=== PATIENT | male | born 1950 | race Caucasian/White ===

== ENCOUNTER 2021-09-01 07:45 | Day surgery (SDC) | payer MEDICARE, OTHER ==
[2021-09-01] VITALS (23 sets, daily range): BP systolic 101–152; BP diastolic 55–92
[~2021-09-01] VITALS: Ht 185.4 cm; Wt 93.7 kg
[2021-09-01] MEDS ORDERED: METO-384 PO (08:25)
[2021-09-01] MEDS ORDERED: FERR325T7 PO (08:25)
[2021-09-01] MEDS ORDERED: FLUO-103 PO (08:25)
[2021-09-01] MEDS ORDERED: ATOR10TA70 PO (08:25)
[2021-09-01] MEDS ORDERED: AMLO10TA13 PO (08:25)
[2021-09-01] MEDS ORDERED: METF-438 PO (08:25)
[2021-09-01] MEDS ORDERED: PANT40TA54 PO (08:25)
[2021-09-01] MEDS ORDERED: POTA-207 PO (08:25)
[2021-09-01] MEDS ORDERED: LORA-269 PO (08:25)
[2021-09-01] MEDS ORDERED: FURO40TA4 PO (08:25)
[2021-09-01] MEDS ORDERED: ASPI-1071 PO (08:26)
[2021-09-01] MEDS ORDERED: MULT-1085 PO (08:28)
[2021-09-01] MEDS ORDERED: ASCO-139 PO (08:28)
[2021-09-01] MEDS ORDERED: CIRCUMIN (08:42)
[2021-09-01] MEDS ORDERED: MAGN400C PO (08:42)
[2021-09-01] MEDS ORDERED: UBID200C18 PO (08:42)
[2021-09-01] MEDS ORDERED: Vitamin B12 (08:42)
[2021-09-01] MEDS ORDERED: CALCIUM PYRUVATE PO (08:42)
[2021-09-01] MEDS ORDERED: ZINC50TA60 PO (08:42)
[2021-09-01] MEDS ORDERED: CHOL500050 PO (08:42)
[2021-09-01] MEDS ORDERED: Milk Thistle (08:42)
[2021-09-01 08:52] LABS: ALBUMIN 4.4 G/DL (3.4-5.0); ANION GAP 12 (8-16); BLOOD UREA NITROGEN 19 MG/DL (7-18); BUN/CREATININE RATIO 16.2 (5.4-32.0); CALCIUM 9.9 MG/DL (8.5-10.1); CHLORIDE 102 MMOL/L (99-107); CREATININE 1.17 MG/DL (0.60-1.10); GLUCOSE 123 MG/DL (70-104); MAGNESIUM 1.5 MG/DL (1.5-2.4); SODIUM 140 MMOL/L (135-145); eGFR 61 ML/MIN
[2021-09-01 08:53] LABS: POTASSIUM 4.3 MMOL/L (3.5-5.1)
[2021-09-01 08:54] LABS: HEMATOCRIT 40.1 % (42.0-52.0); MEAN CORPUSCULAR HGB CONC 33.3 g/dL (33.0-36.5); WHITE BLOOD COUNT 5.7 X10'3 (4.5-11.0)
[2021-09-01 08:56] LABS: HEMOGLOBIN 13.3 g/dl (14.0-17.9); MEAN CORPUSCULAR HEMOGLOBIN 29.1 PG (27.0-31.0); MEAN CORPUSCULAR VOLUME 87.3 FL (78-98); PLATELET COUNT 71 X10'3 (140-440); RED BLOOD COUNT 4.59 X10'6 (4.70-6.10); RED CELL DISTRIBUTION WIDTH 15.9 % (11.5-14.5)
[2021-09-01] MEDS ORDERED: glycopyrrolate 0.2mg/ml inj IV ONE (08:58)
[2021-09-01] MEDS ORDERED: fentaNYL/PF 50MCG/1 ML 2ML syringe IV ONE (09:00)
[2021-09-01] MEDS ORDERED: MIDAZolam 1mg/ml 10ml vial IV ONE (09:00)
[2021-09-01] MEDS ORDERED: normal saline 1000ml 1,000 ML IV SCH (09:00)
[2021-09-01 09:13] LABS: ANISOCYTOSIS 1+; LARGE PLATELETS FEW; PLATELET ESTIMATE DECREASED; POIKILOCYTOSIS FEW; TOTAL CELLS COUNTED 100
[2021-09-01] MEDS ORDERED: amiodarone/D5 360MG/200ML BAG 200 ML IV ONE (11:25)
== END 2021-09-01 15:15 | disposition home or self-care (01) ==
LOC: SSTAY O 07:45
PROVIDERS: ATTEND Internal Medicine Cardiovascular Disease
DX: I48.0 Paroxysmal atrial fibrillation (principal); I25.10 Atherosclerotic heart disease of native coronary artery without angina pectoris; I25.5 Ischemic cardiomyopathy; I08.1 Rheumatic disorders of both mitral and tricuspid valves; I25.2 Old myocardial infarction; I10 Essential (primary) hypertension; E78.5 Hyperlipidemia, unspecified; K70.30 Alcoholic cirrhosis of liver without ascites; E11.9 Type 2 diabetes mellitus without complications; D69.6 Thrombocytopenia, unspecified; D64.9 Anemia, unspecified; Z95.1 Presence of aortocoronary bypass graft; Z79.899 Other long term (current) drug therapy
CPT/HCPCS: 36415; 80048; 82948; 83735; 85025; 85610; 92960; 93005; 93312; 93325; 94760; 94799; J0282; J2250; J3010; J3490; J7030; 85007

== ENCOUNTER 2023-06-25 07:52 | Inpatient (IN) | payer MEDICARE, OTHER ==
[2023-06-18 14:42] LABS: BASOPHILS % (AUTO) 0.5 % (0-1); EOSINOPHILS # (AUTO) 0.1 X10'3 (0-0.9); EOSINOPHILS % (AUTO) 2.4 % (0-6); LYMPHOCYTES % (AUTO) 15.9 % (21-51); MEAN CORPUSCULAR HEMOGLOBIN 31.8 PG (27.0-31.0); MEAN CORPUSCULAR VOLUME 96.3 FL (78-98); MEAN PLATELET VOLUME 10.6 FL (7.4-10.4); MONOCYTES # (AUTO) 0.4 X10'3 (0-0.9); MONOCYTES % (AUTO) 6.2 % (2-12); NEUTROPHILS # (AUTO) 4.6 X10'3 (1.8-7.7); PRE OP HEMATOCRIT 43.8 % (42.0-52.0); PRE OP HEMOGLOBIN 14.5 g/dL (14.0-17.9); PRE OP WHITE BLOOD COUNT 6.1 10'3 (4.8-10.8); RED BLOOD COUNT 4.55 X10'6 (4.70-6.10); RED CELL DISTRIBUTION WIDTH 13.6 % (11.5-14.5)
[2023-06-18 14:47] LABS: BILIRUBIN,URINE NEGATIVE (Neg); CLARITY,URINE CLEAR (Clear); COLOR,URINE YELLOW (Yellow); GLUCOSE, URINE NEGATIVE (Neg); KETONES,URINE NEGATIVE (Neg); LEUKOCYTE ESTERASE ,URINE NEGATIVE (Neg); NITRITES, URINE NEGATIVE (Neg); OCCULT BLOOD,URINE NEGATIVE (Neg); PH,URINE 7.5 (4.8-8.0); PROTEIN,URINE NEGATIVE (Neg); UROBILINOGEN,URINE 0.2 E.U/dL (0.2-1.0)
[2023-06-18 14:54] LABS: UA COLLECTION TYPE CLN CATCH MIDSTREAM
[2023-06-18 14:59] LABS: PRE OP INR 1.2 INR; PRE OP PROTIME 12.9 SECONDS (9.0-12.0)
[2023-06-18 15:00] LABS: ALBUMIN 4.1 G/DL (3.4-5.0); ALBUMIN/GLOBULIN RATIO 1.3 (1.1-1.5); ALKALINE PHOSPHATASE 112 IU/L (46-116); BLOOD UREA NITROGEN 19 MG/DL (7-18); BUN/CREATININE RATIO 16.5 (10.0-20.0); CHLORIDE 104 MMOL/L (99-107); CREATININE 1.15 MG/DL (0.60-1.10); PRE OP ALT 26 U/L (30-65); PRE OP ANION GAP 12 (8-16); PRE OP AST 26 U/L (10-37); PRE OP BILIRUB, TOTAL 0.8 MG/DL (0.0-1.0); PRE OP GLUCOSE 97 MG/DL (70-104); PRE OP POTASSIUM 4.3 MMOL/L (3.4-5.1); PRE OP SODIUM 141 MMOL/L (135-145); TOTAL CARBON DIOXIDE 24.8 MMOL/L (24-32); TOTAL PROTEIN 7.2 G/DL (6.4-8.2); eGFR 62 ML/MIN
[2023-06-18 15:11] LABS: PRE OP PLATELET COUNT 61 X10'3 (140-440)
[~2023-06-25] VITALS: Ht 185.4 cm; Wt 91.6 kg
[2023-06-25] VITALS (30 sets, daily range): BP systolic 110–144; BP diastolic 56–73; PULSE 47–60; RESP 9–19; TEMP 97.6–98; O2SAT 91–100
[2023-06-25] MEDS: cefazolin 2gm/D5W 100mL 100 ML IV ONE (05:30)
[~2023-06-25 07:52] MED LIST: ACETYL CARNITINE PO; ALPH600C3 PO; AMI200T PO; AMLO-888 PO; ATOR20TA66 PO; CALCIUM PYRUVATE PO; CHOL500050 PO; CYAN-34 PO; FURO40TA4 PO; IRON PO; METF-438 PO; POTA-207 PO; RESV100C PO; UBID200C18 PO
[2023-06-25] MEDS: ringers solution, lacted 1,000 ML IV SCH ×2 (08:41→09:20)
[2023-06-25] MEDS: famotidine 20mg tablet PO ONE (08:42)
[2023-06-25] MEDS ORDERED: morphine 2 MG/ML inj. syringe IV PRN (09:20)
[2023-06-25] MEDS ORDERED: proCHLORperazine 10 MG/2 ml inj IV PRN (09:20)
[2023-06-25] MEDS ORDERED: morphine 4 MG/ML inj SYRINge IV PRN (09:20)
[2023-06-25] MEDS ORDERED: meperidine/PF 25mg/ml syringe IV PRN (09:20)
[2023-06-25] MEDS ORDERED: hydrALAZINE 20mg/ml inj. IV PRN (09:20)
[2023-06-25] MEDS ORDERED: HYDROmorphone/PF 0.2 MG/ML SYRINGE IV PRN ×2 (09:20)
[2023-06-25] MEDS ORDERED: labetalol 20mg/4ml (5mg/ml) syringe IV PRN (09:20)
[2023-06-25] MEDS ORDERED: ondansetron/PF 4mg/2ml inj IV PRN ×2 (09:20→10:00)
[2023-06-25] MEDS ORDERED: methylene blue (5mg/ml) 50mg/10ml ampul IV ONE (09:55)
[2023-06-25] MEDS ORDERED: gelatin sponge, absorbable (Gelfoam 100) sponge TP ONE (09:56)
[2023-06-25] MEDS ORDERED: Thrombin (Bovine) 5,000 unit vial TP ONE (09:56)
[2023-06-25] MEDS ORDERED: naloxone 0.4 mg/ml inj IV PRN (10:00)
[2023-06-25] MEDS ORDERED: magnesium hydroxide 30ml (MOM) UD suspension PO PRN (10:00)
[2023-06-25] MEDS ORDERED: bisacodyl 10mg suppository rectal RC PRN (10:00)
[2023-06-25] MEDS ORDERED: acetaminophen 325mg tablet PO PRN (10:00)
[2023-06-25] MEDS ORDERED: diphenhydrAMINE 25mg capsule PO PRN (10:00)
[2023-06-25] MEDS ORDERED: midazolam 1 mg/ML 2ml injection ONE (10:11)
[2023-06-25] MEDS ORDERED: sevoflurane 250ml liquid IH ONE (10:15)
[2023-06-25] MEDS ORDERED: HYDROcodone/acetaminophen 5mg/325mg tablet PO PRN (10:15)
[2023-06-25] MEDS: tranexamic acid inj. 1,000 MG in normal saline IV soln 100ML IV ONE (10:30)
[2023-06-25] MEDS ORDERED: dexamethasone sod phosphate 4mg/ml inj. ONE (10:50)
[2023-06-25] MEDS ORDERED: rocuronium 10mg/ml inj IV ONE (10:50)
[2023-06-25] MEDS ORDERED: ROPIVAcaine 0.5% (5mg/ml) 30ml vial ONE (10:50)
[2023-06-25] MEDS ORDERED: LIDOcaine 1%/PF 5ML 10 MG/ML VIAL ONE ×2 (10:50)
[2023-06-25] MEDS ORDERED: neostigmine methylsulfate 1 MG/ML 10ml vial ONE (10:50)
[2023-06-25] MEDS ORDERED: propofol inj 20 ML IV ONE (10:50)
[2023-06-25] MEDS ORDERED: fentaNYL /PF 50mcg/ml 5ml ampule ONE (10:50)
[2023-06-25] MEDS ORDERED: ondansetron/PF 4mg/2ml inj ONE (10:52)
[2023-06-25] MEDS: vancomycin 1,000mg inj ONE (12:21)
[2023-06-25] MEDS ORDERED: glycopyrrolate 0.2mg/ml inj ONE (12:44)
[2023-06-25] MEDS: acetaminophen 1,000mg/100ml IV 100 ML IV ONE (14:05)
[2023-06-25] MEDS: HYDROcodone/acetaminophen 5mg/325mg tablet PO PRN (17:22)
[2023-06-25] MEDS ORDERED: glucagon, human recombinant 1mg kit SUBCUT PRN (19:15)
[2023-06-25] MEDS ORDERED: DEXTROSE 15 GM of carb/4 tabs (each vial/BOTTLE has 4 tablets) PO PRN ×2 (19:15)
[2023-06-25] MEDS ORDERED: dextrose 50%-water 50ml dispensing syringe IV PRN ×2 (19:15)
[2023-06-25] MEDS: cefazolin 2gm/D5W 100mL 100 ML IV SCH (19:25)
[2023-06-25] MEDS: potassium cl 20mEq in 1/2 NS 1,000 ML IV SCH (19:26)
[2023-06-25] MEDS: insulin glargine (Lantus) pen - multi-dose SQ SCH (21:00)
[2023-06-25] MEDS: insulin Lispro (HumaLOG) vial - multi-dose SQ SCH (22:29)
[2023-06-26 02:00] VITALS: BP 116/61; PULSE 56; RESP 15; TEMP 98.3; O2SAT 95
[2023-06-26 06:00] VITALS: BP 123/61; PULSE 50; RESP 16; TEMP 97.5; O2SAT 95
[2023-06-26 08:00] VITALS: RESP 16; O2SAT 95
[2023-06-26] MEDS ORDERED: furosemide 40mg tablet PO SCH (08:00)
[2023-06-26] MEDS ORDERED: RESVERATROL PO SCH (08:00)
[2023-06-26 08:08] LABS: EOSINOPHILS % (AUTO) 0 % (0-6); MONOCYTES # (AUTO) 0.6 X10'3 (0-0.9); WHITE BLOOD COUNT 9.8 X10'3 (4.5-11.0)
[2023-06-26 08:12] LABS: BASOPHILS % (AUTO) 0 % (0-1); HEMATOCRIT 38.6 % (42.0-52.0); LYMPHOCYTES # (AUTO) 0.6 X10'3 (1.1-4.8); LYMPHOCYTES % (AUTO) 6.4 % (21-51); MEAN CORPUSCULAR HEMOGLOBIN 32.2 PG (27.0-31.0); MEAN CORPUSCULAR HGB CONC 33.8 g/dL (33.0-36.5); MEAN CORPUSCULAR VOLUME 95.2 FL (78-98); MEAN PLATELET VOLUME 10.5 FL (7.4-10.4); MONOCYTES % (AUTO) 5.8 % (2-12); NEUTROPHILS # (AUTO) 8.6 X10'3 (1.8-7.7); NEUTROPHILS % (AUTO) 87.8 % (42-75); PLATELET COUNT 77 X10'3 (140-440); RED BLOOD COUNT 4.05 X10'6 (4.70-6.10); RED CELL DISTRIBUTION WIDTH 13.5 % (11.5-14.5)
[2023-06-26] MEDS: atorvastatin 20mg tablet PO SCH (08:38)
[2023-06-26] MEDS: metFORMIN 500mg tablet PO SCH (08:38)
[2023-06-26] MEDS: amiodarone 200mg tablet PO SCH (08:38)
[2023-06-26] MEDS: furosemide 20MG tablet PO SCH (08:38)
[2023-06-26] MEDS: cyanocobalamin 500mcg tablet PO SCH (08:38)
[2023-06-26] MEDS: cholecalciferol (vitamin D3) 1,000 unit (25mcg) tablet PO SCH (08:38)
[2023-06-26] MEDS: amLODIPine 5mg tablet PO SCH (08:40)
[2023-06-26 08:42] LABS: ANION GAP 9 (8-16); CHLORIDE 103 MMOL/L (99-107); POTASSIUM 4.6 MMOL/L (3.5-5.1); SODIUM 135 MMOL/L (135-145); TOTAL CARBON DIOXIDE 23.3 MMOL/L (24-32)
[2023-06-26 10:00] VITALS: BP 121/65; PULSE 60; RESP 18; TEMP 98.5; O2SAT 98
[2023-06-26] MEDS ORDERED: ASPI-1 PO (10:54)
[2023-06-26] MEDS: cefazolin 2gm/D5W 100mL 100 ML IV SCH (11:25)
[2023-06-26 11:39] VITALS: RESP 16
[2023-06-26] MEDS ORDERED: HYDR-3965 PO (12:53)
== END 2023-06-26 13:40 | disposition home or self-care (01) | DRG 483 ==
LOC: PAS 07:52 → ORTHO 4S 17:03 → PAS 06-26 09:44
PROVIDERS: ADMIT Family Medicine; ATTEND Family Medicine
PROC: 0LS30ZZ Reposition Right Upper Arm Tendon, Open Approach (ICD-10-PCS; 2023-06-25)
PROC: 30233R1 Transfusion of Nonautologous Platelets into Peripheral Vein, Percutaneous Approach (ICD-10-PCS; 2023-06-25)
PROC: 0RRJ00Z Replacement of Right Shoulder Joint with Reverse Ball and Socket Synthetic Substitute, Open Approach (ICD-10-PCS; principal; 2023-06-25 10:15)
DX: M19.011 Primary osteoarthritis, right shoulder (principal); M75.111 Incomplete rotator cuff tear or rupture of right shoulder, not specified as traumatic; I25.10 Atherosclerotic heart disease of native coronary artery without angina pectoris; I10 Essential (primary) hypertension; Z96.651 Presence of right artificial knee joint; D69.6 Thrombocytopenia, unspecified; I48.0 Paroxysmal atrial fibrillation; E11.9 Type 2 diabetes mellitus without complications; Z95.1 Presence of aortocoronary bypass graft; Z79.84 Long term (current) use of oral hypoglycemic drugs; Z79.899 Other long term (current) drug therapy
CPT/HCPCS: 36415; 36430; 71046; 73030; 76000; 80051; 80053; 81003; 82948; 85025; 85610; 85730; 86885; 86900; 86901; 87081; 97110; 97161; 97530; A4565; A4618; A6449; A6455; A7000; C1776; G0378; J0131; J0690; J1100; J1815; J2250; J2405; J2704; J2710; J2795; J3010; J3370; J3480; J3490; J7120; P9035; Q9968

== ENCOUNTER → 2023-07-24 | Outpatient (CLI) | payer MEDICARE, OTHER ==
[~2023-07-24] MED LIST changes: +ASPI-1 PO; +HYDR-3965 PO
[2023-07-24 08:17] LABS: TOTAL HEMOGLOBIN 14.3 G/dl (14.0-17.9)
== END | disposition home or self-care (01) ==
LOC: RT 07:46
PROVIDERS: ATTEND Internal Medicine
DX: R06.02 Shortness of breath (principal)
CPT/HCPCS: 85018; 94010; 94727; 94729

== ENCOUNTER 2024-11-05 05:58 | Day surgery (SDC) | payer MEDICARE, OTHER ==
[2024-10-27 11:32] LABS: MEAN PLATELET VOLUME 11.0 FL (7.4-10.4); PRE OP HEMATOCRIT 40.5 % (42.0-52.0); PRE OP HEMOGLOBIN 14.0 g/dL (14.0-17.9); PRE OP WHITE BLOOD COUNT 5.0 10'3 (4.8-10.8); RED CELL DISTRIBUTION WIDTH 14.5 % (11.5-14.5)
--- NOTE | 2024-10-27 11:37 | ELECTROCARDIOGRAPH REPORT ---
[facility] Test Date: 2024-10-27 Test Time: 11:32:55 Pat Name: FLORES ROWE Department: [facility]-PRE-OP Patient ID: [id number] Room: Gender: M Pattern Stamper: : 1950 Requested By: FLORES STRATTON Order Number: [id number] Reading MD: Dr. REHAN Moura Measurements Intervals [place] Rate: 86 P: 0 SD: 164 QRS: 211 QRSD: 141 T: 25 QT: 435 QTc: 521 Interpretive Statements Ventricular-paced rhythm No further analysis attempted due to paced rhythm Electronically Signed On 10-27-2024 17:12:[address] REHAN Moura Please click the below link to view image of tracing.
[2024-10-27 11:44] LABS: CREATININE 0.93 MG/DL (0.60-1.10); PRE OP ALT 29 U/L (30-65); PRE OP ANION GAP 6 (8-16); PRE OP AST 27 U/L (10-37); PRE OP BILIRUB, TOTAL 1.1 MG/DL (0.0-1.0); PRE OP GLUCOSE 91 MG/DL (70-104); PRE OP POTASSIUM 3.9 MMOL/L (3.4-5.1); PRE OP SODIUM 138 MMOL/L (135-145); TOTAL CARBON DIOXIDE 27.4 MMOL/L (24-32); eGFR 79 ML/MIN
[2024-10-27 12:06] LABS: PRE OP PLATELET COUNT 54 X10'3 (140-440)
[2024-10-27 12:08] LABS: PLATELET ESTIMATE DECREASED
[2024-10-27 12:09] LABS: LARGE PLATELETS FEW
[~2024-11-05] VITALS: Ht 182.9 cm; Wt 84.7 kg
[2024-11-05] VITALS (13 sets, daily range): BP systolic 102–146; BP diastolic 60–90; PULSE 60–67; RESP 9–16; TEMP 96.3–97.3; O2SAT 67–100
[~2024-11-05 05:58] MED LIST changes: -ACETYL CARNITINE PO; -ALPH600C3 PO; +ALPH600C8 PO; -AMI200T PO; +APIX5TAB5 PO; -ASPI-1 PO; -CALCIUM PYRUVATE PO; -CYAN-34 PO; -HYDR-3965 PO; -IRON PO; +LEVO-81 PO; +MULT-1085 PO; +PHYT100T PO; -RESV100C PO; +SEMA2PEN SQ; +VITA400T10 PO; +[UNRECOGNIZED DRUG - CODE] PO
[2024-11-05] MEDS: ceFAZolin 2gm/dext,iso 50mL 50 ML IV ONE (06:20)
[2024-11-05] MEDS: ringers solution, lacted 1,000 ML IV SCH (06:27)
[2024-11-05] MEDS ORDERED: BUPIVAcaine 2.5mg/ml inj 50ml vial (contains preservative) ONE (06:39)
[2024-11-05] MEDS ORDERED: LIDOcaine 1% 30ml preserv. free vial ONE (06:40)
--- NOTE | 2024-11-05 07:22 | HISTORY AND PHYSICAL ---
History & Physical Providers to CC CC: FLORES STRATTON MD ~ History of Present Illness Reason for Admit\Complaint: Right inguinal hernia History of Present Illness Interval history and physical exam Patient was seen in the office early last month and confirmed to have a right inguinal hernia He has a history of previous left inguinal hernia repair via robotic assisted laparoscopic mesh approach He is having some discomfort in the left groin, however, no lump or bulge His primary concern is a bulge in the right groin He denies any change in his past medical history since he was seen in the office last month He is scheduled for robotic assisted, laparoscopic right inguinal hernia repair with mesh Allergies: Coded Allergies: No Known Allergies (Unverified , 09/01/21) Home Medications Home Medications Active Reported Eliquis (Apixaban) 5 Mg (74 Tabs) Tab.ds.pk 1 Tab PO HS Vitamin K (Phytonadione) Unknown Strength Tablet Unknown Dose PO DAILY L-Arginine (Arginine HCl) Unknown Strength Tablet Unknown Dose PO DAILY Vitamin E (Vitamin E Mixed) 400 Unit Tablet 1 Tab PO DAILY l-Carnitine (Levocarnitine) Unknown Strength Tablet Unknown Dose PO DAILY Alpha Lipoic Acid Unknown Strength Capsule Unknown Dose PO DAILY Ozempic (Semaglutide) 2 Mg/0.75 Ml (8 Mg/3 Ml) Pen.injctr 2 Mg SQ QFRIDAY Multi Vitamin Daily (Multivitamin) 1 Each Tablet 1 Tab PO DAILY Norvasc (Amlodipine Besylate) 10 Mg Tablet 1 Tab PO DAILY Atorvastatin Calcium 20 Mg Tablet 1 Tab PO DAILY Vitamin D3 (Cholecalciferol (Vitamin D3)) 125 Mcg Capsule 1 Cap PO DAILY Co Q-10 (Ubidecarenone) 200 Mg Capsule 1 Cap PO DAILY Metformin HCl 1,000 Mg Tablet 1 Tab PO DAILY K-Dur* (Potassium Chloride) 20 Meq Tab.prt.sr 1 Tab PO BID Furosemide 40 Mg Tablet 0.5 Tab PO DAILY Family History Family History: FH: colon cancer (Mother) FH: lung cancer (Brother) ROS ROS Reviewed and negative Exam General: 73-year-old male in no acute distress Chest: Lungs clear to auscultation bilaterally Cardiovascular: Regular rate and rhythm without murmurs Abdomen: Soft and nondistended Right side of the abdomen marked to correlate with a right inguinal hernia Problems: (1) Right inguinal hernia Assessment & Plan: The risks, benefits, and alternatives to a robotic assisted, laparoscopic right inguinal hernia repair with mesh were discussed with the patient. Risks include, but are not limited to, bleeding, infection, injury to intra-abdominal structures, hernia recurrence and chronic postoperative pain. Patient verbalized understanding and wishes to proceed with surgery. We will do so today as scheduled FLORES STRATTON MD Nov 05, 2024 07:22
[2024-11-05] MEDS ORDERED: fentaNYL/PF 50MCG/1 ML 2ML syringe ONE (07:26)
[2024-11-05] MEDS ORDERED: midazolam 1 mg/ML 2ml injection ONE (07:26)
[2024-11-05] MEDS ORDERED: dexamethasone sod phosphate 4mg/ml inj. ONE (07:27)
[2024-11-05] MEDS ORDERED: propofol inj 20 ML IV ONE (07:27)
[2024-11-05] MEDS ORDERED: rocuronium 10mg/ml inj IV ONE (07:27)
[2024-11-05] MEDS ORDERED: ondansetron/PF 4mg/2ml inj ONE (07:27)
[2024-11-05] MEDS ORDERED: LIDOcaine 2% (20mg/ml) 5ml vial ONE (07:27)
[2024-11-05] MEDS ORDERED: acetaminophen 1,000mg/100ml IV 100 ML IV ONE (07:34)
[2024-11-05] MEDS ORDERED: labetalol 20mg/4ml (5mg/ml) syringe IV PRN (08:00)
[2024-11-05] MEDS ORDERED: ondansetron/PF 4mg/2ml inj IV PRN (08:00)
[2024-11-05] MEDS ORDERED: hydrALAZINE 20mg/ml inj. IV PRN (08:00)
[2024-11-05] MEDS ORDERED: fentaNYL/PF 50MCG/1 ML 2ML syringe IV PRN ×2 (08:00)
[2024-11-05] MEDS ORDERED: ringers solution, lacted 1,000 ML IV SCH (08:00)
[2024-11-05] MEDS ORDERED: morphine 4 MG/ML inj SYRINge IV PRN (08:00)
[2024-11-05] MEDS: BUPIVAcaine/PF 2.5 mg/ml (0.25%) 30ml vial IJ ONE (08:07)
[2024-11-05] MEDS ORDERED: HYDROcodone/acetaminophen 5mg/325mg tablet PO PRN (09:10)
--- NOTE | 2024-11-05 09:16 | OPERATIVE REPORT ---
Operative Report Providers to CC CC: ARNIE STRATTON MD ~ Date of Procedure: Nov 05, 2024 Pre-Operative Diagnosis: Right inguinal hernia Post-Operative Diagnosis Right inguinal hernia Right spermatic cord lesion Procedure Performed Robotic assisted, laparoscopic right inguinal hernia repair with mesh Excision of a spermatic cord lesion-laparoscopic Surgeon: Arnie Stratton MD FACS Rn Urology None Anesthesiologist: Jon Harrison Type of Anesthesia: General Findings: Very large fatty lesion/tumor of the right spermatic cord excised and sent for pathology Large indirect right inguinal hernia Evidence of previous preperitoneal left inguinal hernia repair with mesh Wound class I Complications None Prosthetics\Implants used: Extra-large right Dextile mesh Estimated Blood Loss: Minimal Specimen Removed: Right spermatic cord lesion/tumor Description of Procedure: Patient was brought to the operating room and identified by the nursing staff and the attending physician. Patient was placed supine and general anesthesia was induced. Patient's abdomen was prepped and draped in standard sterile fashion. Preoperative antibiotics were given. Supraumbilical incision was made to allow for standard Pugh entry technique. Laparoscope was inserted after insufflation. Bilateral, 8.5 mm robotic trochars were placed under laparoscopic guidance following administration of local anesthetic. The da Frank robotic arm was docked to the patient and instruments placed intra-abdominally under laparoscopic visualization. The left hemipelvis was examined and showed no evidence of left inguinal hernia. An indirect hernia was identified on the right side. Hernia sac was moderate in size. A rent was created in the peritoneum from the median umbilical fold and carried out laterally towards the anterior superior iliac spine. Preperitoneal flap was created and carried down to the symphysis pubis. The retropubic space of Retzius was developed and the bladder swept medially. Dissection was carried out laterally until an indirect hernia sac was identified. This was moderate in size. Hernia sac was completely dissected away from the cord structures and reduced. The critical view of the myopectineal orifice was achieved. Dissection was carried out laterally to allow space for mesh deployment. There was a very large fatty tumor associated with a right spermatic cord that was noted. This was mobilized away from the cord structures, keeping them protected, and completely reduced out of the inguinal canal. Once the attachments to the retroperitoneum were reached, the lesion was transected and set aside for later retrieval. An extra- large, Dextile mesh and suture was passed intra-abdominally. Mesh was laid in the preperitoneal space covering both indirect, direct, and potential femoral and obturator hernias. Mesh laid without wrinkles or folds. 3 tacking sutures using 0 Ethibond were used to fix the mesh at the symphysis pubis, rectus abdominis, and just anterior to the anterior superior iliac spine. The peritoneal rent was then closed with running, 2/0, absorbable locking suture. [place] and specimen were retrieved. Abdomen was deflated and secondary trochars removed. Fascia at the umbilical port site was closed with 0 Vicryl sutures. Skin incisions were closed with 4-0 Monocryl sutures in a subcuticular fashion. Sterile dressings were applied. Patient was awakened and taken to the postanesthesia care unit in stable condition. Counts repoted as correct: Yes ARNIE STRATTON MD Nov 05, 2024 09:16
--- NOTE | 2024-11-06 11:24 | PATHOLOGY REPORT ---
[facility] [address] [place] [address] SURGICAL PATHOLOGY REPORT CaseNumber: [id number] Surgeon:Arnie Rojas M.D. CLINICAL INFORMATION CLINICAL INFORMATION: Inguinal hernia. DIAGNOSIS DIAGNOSIS: SOFT TISSUE, PARA-SPERMATIC CORD, RIGHT; EXCISION - CORD LIPOMA. - BENIGN FIBROTIC LYMPH NODE. MICROSCOPIC DESCRIPTION MICROSCOPIC DESCRIPTION: Three slides are reviewed of the right para-spermatic cord mass. Present is abundant bland fatty tissue with at least one lymph node set within. The sheets of bland fatty tissue contain scattered thin and thick-walled vessels. The lymph node has a thick fibrous capsule. There is superimposed, as site appropriate, fibrosis of the middle of the lymph node. Portions of the lymph node are replaced by fatty tissues. Beneath the c apsule are scattered primary and secondary follicles. There is no monomorphic proliferation of hemato lymphoid cells to suggest a hematolymphoid malignancy. There is no metastatic carcinoma. There are no unexpected structures within the submitted tissues. (st) GROSS DESCRIPTION GROSS DESCRIPTION: Received in a container of formalin labeled with the patients name, number, and "r ight spermatic cord mass" is a 27 g irregularly shaped excision of fat which measures 4 x 4 x 4 cm. Sectioning reveals lobulated mature-appearing adipose tissue without areas of hemorrhage, necrosis, o r nodularity. Tan Room Supervisor sections are submitted as [id number]. The time at which the specimen was re moved was 0840. The time at which the specimen was placed in formalin was 0842. (meb) Electronically signed by: Cherelle Conner M.D. 11/06/2024 10:53:00 AM
== END 2024-11-05 11:35 | disposition home or self-care (01) ==
LOC: PAS 05:58
PROVIDERS: ATTEND Surgery
DX: K40.90 Unilateral inguinal hernia, without obstruction or gangrene, not specified as recurrent (principal); D17.6 Benign lipomatous neoplasm of spermatic cord; I48.91 Unspecified atrial fibrillation; I25.10 Atherosclerotic heart disease of native coronary artery without angina pectoris; G47.30 Sleep apnea, unspecified; E11.9 Type 2 diabetes mellitus without complications; Z95.0 Presence of cardiac pacemaker; Z98.890 Other specified postprocedural states; Z79.899 Other long term (current) drug therapy; Z87.891 Personal history of nicotine dependence; F32.A Depression, unspecified; K76.0 Fatty (change of) liver, not elsewhere classified
CPT/HCPCS: 36415; 49650; 80053; 82948; 85025; 93005; A4215; A4618; C1781; J0131; J1100; J2003; J2250; J2405; J2704; J3010; J3490; J7030; J7120; Z7506; Z7508; Z7512; Z7610; 85008; 88304

== ENCOUNTER 2025-01-11 08:55 | Outpatient (CLI) | payer MEDICARE, OTHER ==
--- NOTE | 2025-01-11 11:06 | VASCULAR REPORT ---
Indication: Dizziness, hypertension Technique: Real-time ultrasound images of the neck vessels with rodriguez-scale, color and wave Doppler were obtained. Comparison: None Findings: Mild [id number] bilateral atherosclerotic plaque. The following peak systolic velocities were recorded in cm/sec: Right internal carotid: 61 Right common carotid: 91 Right external carotid: 77 Right internal/common carotid ratio: 0.72 Left internal carotid: 66 Left common carotid: 84 Left external carotid: 86 Left internal/common carotid ratio: 0.89 Right vertebral artery: Patent with normal antegrade direction of flow. Left vertebral artery: Patent with normal antegrade direction of flow. Impression: No hemodynamically significant stenosis by velocity criteria.
== END 2025-01-11 23:59 | disposition home or self-care (01) ==
LOC: VAS 08:55
PROVIDERS: ATTEND Internal Medicine Cardiovascular Disease
DX: I65.23 Occlusion and stenosis of bilateral carotid arteries (principal); I25.84 Coronary atherosclerosis due to calcified coronary lesion
CPT/HCPCS: 93880